=== PATIENT | male | born 2000 | race Two or more races ===

== ENCOUNTER 2025-01-29 00:50 | Emergency (ER) | payer MEDICAID ==
[~2025-01-29] VITALS: Ht 175.3 cm; Wt 85.9 kg
--- NOTE | 2025-01-29 01:55 | ED.PDOC ---
Back pain HPI HPI Comments Pt presents with cc of left shoulder pain s/p trip and fall last night at 1999. Pt was een down the hill at an and told to follow up in an ED. Pt has paperwork with xray results stating he has a comminuted and displaced mid-left clavicular fracture. Pt presents with left arm in a sling and with pain at a 10/10. Denies numbness, weakness, or new injury Chief Complaint: Upper Extremity Time Seen by MD: 01:05 Reviewed Notes: Nurses Notes, Medications, Allergies Allergies: Coded Allergies: No Known Drug Allergy (Verified Allergy, Unknown, 01/29/25) Home Meds Active Scripts Tizanidine Hydrochloride (Tizanidine Hcl) 4 Mg Tab, 4 MG PO BID PRN for 7 Days, #14 TAB Prov:LAVON MARTIN 01/29/25 Ibuprofen (Ibuprofen) 800 Mg Tab, 800 MG PO Q8HP PRN for 7 Days, #21 TAB Prov:LAVON MARTIN 01/29/25 Information Source: Patient Mode of Arrival: Ambulatory Past Medical History PAST MEDICAL HISTORY: Denies Surgical History: Denies all surgeries Family History Family History: Unknown Social History Smoker: Non-Smoker Alcohol: Denies ETOH Use Drugs: Denies Drug Use All Other Systems: Reviewed and Negative (see hpi) Physical Exam General Appearance: No Apparent Distress, Normal HEENT: Pharynx Normal Neck: Full Range of Motion, Non-Tender Respiratory: Lungs Clear, No Respiratory Distress, Normal Breath Sounds Cardiovascular: No Murmur, Normal Peripheral Pulses, Regular Rate/Rhythm Breast Exam: Deferred Gastrointestinal: Non Tender, Soft Genitalia: Deferred Pelvic: Deferred Rectal: Deferred Extremities: Normal capillary refill Musculoskeletal : Location: Left Extremity Location: Clavicle (edema mid-clavicle sling in place. + CSM ) Apperance: Normal Neurologic: Alert, No Motor Deficits, Normal Affect, Normal Mood, No Sensory Deficits Cerebellar Function: Normal Reflexes: NOT DONE Skin: Dry, Normal Color, Warm Lymphatic: No Adenopathy Was a procedure done? Was a procedure done?: No Back Pain Differential Dx Differential Diagnosis: Fracture, Musculoskeletal Pain X-Ray, Labs, Meds, VS Vital Signs Date Time Temp Pulse Resp B/P (MAP) Pulse Ox O2 Delivery O2 Flow Rate FiO2 01/29/25 02:13 98.4 71 16 131/86 (101) 97 98.4 01/29/25 02:13 71 16 97 Room Air 01/29/25 00:52 97.8 118 18 140/104 96 97.8 Current Medications Medications (Trade) Dose Ordered Sig/Sebas Route Start Time Stop Time Status Last Admin Ketorolac Tromethamine (Toradol Injection) 60 mg ONCE ONCE IM 01/29/25 02:00 01/29/25 02:01 DC 01/29/25 02:13 Acetaminophen/ Hydrocodone Bitart ([place] 5/325MG Tab) 1 tab ONCE ONCE PO 01/29/25 02:00 01/29/25 02:01 DC 01/29/25 02:13 X-Ray, Labs, Meds, VS Comment Patient given Toradol 60 mg IM and [place] 5 mg p.o.. Reports improvement in pain and function requesting discharge at this time. Script trial of and muscle relaxer advised take medication as prescribed side effects discussed. Advised ICE for comfort Advised to rest. Advised to follow up with PCP in 2-3 days for referral to ortho. Advised on ER return precautions for increasing pain, numbness, weakness. Patient indicates understanding agrees with discharge plan of care. Time of 1ST Reevaluation: 01:05 Reevaluation 1ST: Unchanged Time of 2ND Reevaluation: 01:57 Reevaluation 2ND: Improved Patient Education/Counseling: Diagnosis, Treatment, Need For Follow Up Family Education/Counseling: No Family Present SEPSIS Sepsis Screen Date sepsis recognized/suspect: Jan 29, 2025 Time Sepsis recognized/suspect: 005 Recent Procedure: No On Antibiotic Therapy: No Respiratory Rate >20: No Heart Rate >90: Yes Temp<36 C (96.8 F) or >38.3 C: No SBP <90 or MAP <65 mmHG: No New Acute Mental Status Change: No Is the patient on CPAP, BIPAP,: No Vital Signs Date Time Temp Pulse Resp B/P (MAP) Pulse Ox O2 Delivery O2 Flow Rate FiO2 01/29/25 02:13 98.4 71 16 131/86 (101) 97 98.4 01/29/25 02:13 71 16 97 Room Air 01/29/25 00:52 97.8 118 18 140/104 96 97.8 Medications Medications Dose Ordered Sig/Sebas Route Start Time Stop Time Status Last Admin Dose Admin Acetaminophen/ Hydrocodone Bitart 1 tab ONCE ONCE PO 01/29/25 02:00 01/29/25 02:01 DC 01/29/25 02:13 Ketorolac Tromethamine 60 mg ONCE ONCE IM 01/29/25 02:00 01/29/25 02:01 DC 01/29/25 02:13 Departure 1 Departure Time of Disposition: 01:57 Impression: Primary Impression: Clavicle fracture, shaft Qualified Codes: S42.022D - Displaced fracture of shaft of left clavicle, subsequent encounter for fracture with routine healing Disposition: 01 HOME / SELF CARE / HOMELESS Condition: Stable e-Prescriptions Tizanidine Hydrochloride (Tizanidine Hcl) 4 Mg Tab 4 MG PO BID PRN for 7 Days, #14 TAB Prov: LAVON MARTIN 01/29/25 Ibuprofen (Ibuprofen) 800 Mg Tab 800 MG PO Q8HP PRN for 7 Days, #21 TAB Prov: LAVON MARTIN 01/29/25 Discharged With: Self Critical Care Note Critical Care Time?: No Stability Stability form required: No LAVON MARTIN Jan 29, 2025 01:55
[2025-01-29] MEDS ORDERED: IBUP-1456 PO (01:59)
[2025-01-29] MEDS ORDERED: TIZA-142 PO (01:59)
[2025-01-29 02:13] VITALS: BP 131/86; PULSE 71; RESP 16; TEMP 98.4; O2SAT 97
[2025-01-29] MEDS: KETOROLAC TROMETH 60MG/2ML VIAL IM ONE (02:13)
[2025-01-29] MEDS: HYDROcodone-ACET 5/325MG TAB PO ONE (02:13)
== END 2025-01-29 02:24 | disposition home or self-care (01) ==
LOC: ER 00:50
DX: S42.022A Displaced fracture of shaft of left clavicle, initial encounter for closed fracture (principal); X58.XXXA Exposure to other specified factors, initial encounter; Y93.89 Activity, other specified; Y92.89 Other specified places as the place of occurrence of the external cause; Y99.8 Other external cause status
CPT/HCPCS: 96372; 99283; J1885